=== PATIENT | male | born 1965 | race Caucasian/White ===

== ENCOUNTER → 2024-10-18 | Day surgery (SDC) | payer BC ==
[~2024-10-18] MED LIST: Ketamine 500 mg/10 ML MDV IV ONE; Lidocaine 2% 100 MG/5 ML Syringe IVPUSH ONE; Midazolam 1 MG/ML 2 ML SDV IV ONE; Propofol 200 MG/20 ML SDV IV ONE; Sodium Chloride 0.9% 10 ML Syringe FLUSH PRN
[2024-10-18] MEDS: Lactated Ringers 1,000 ML IV SCH (07:41)
[2024-10-18] MEDS: Simethicone Drops 40 MG/0.6 ML 30 ML Bottle ONE (08:50)
[2024-10-18 10:33] VITALS: BP 139/81; PULSE 56
== END | disposition home or self-care (01) ==
LOC: FB.SDS 06:51
PROVIDERS: ATTEND Surgery
DX: Z12.11 Encounter for screening for malignant neoplasm of colon (principal); D12.5 Benign neoplasm of sigmoid colon; D12.3 Benign neoplasm of transverse colon; D12.4 Benign neoplasm of descending colon; K57.30 Diverticulosis of large intestine without perforation or abscess without bleeding; K64.8 Other hemorrhoids; K64.4 Residual hemorrhoidal skin tags; I10 Essential (primary) hypertension; E78.00 Pure hypercholesterolemia, unspecified; E03.9 Hypothyroidism, unspecified; Z79.890 Hormone replacement therapy; Z79.899 Other long term (current) drug therapy
CPT/HCPCS: 00811; 45380; 45385; 88305; A9270; J2250; J2704; J3490; J7120